=== PATIENT | male | born 1935 | race Caucasian/White ===

== ENCOUNTER → 2020-07-09 18:45 | Outpatient (CLI) | payer MEDICARE, OTHER, SELFPAY ==
--- NOTE | 2020-07-09 | DI.MRI.S_ITS ---
PROCEDURE: MR KNEE LT WO CON INDICATIONS: STRAIN OF LEFT QUADRICEPS, MUSCLE FACIA AND TENDON TECHNIQUE: Noncontrast sagittal PD fast spin echo and T2 fast spin echo with fat saturation, sagittal 3-D FLASH with fat saturation; coronal T1 spin echo and PD fast spin echo with fat saturation, and axial PD fast spin echo with fat saturation through the knee. COMPARISON: [facility] [place], CR, XR KNEE 4+ VIEWS LEFT, 07/07/2020, 14:07. FINDINGS: Image quality: Excellent. Menisci: There is extensive degenerative tearing and maceration of the medial meniscus with mild extrusion beyond the femorotibial joint line. There is complex tearing of the anterior horn of the lateral meniscus with horizontal oblique and vertical longitudinal components. Cruciate ligaments: There is chronic complete tearing of the anterior cruciate ligament. The posterior cruciate ligament is intact. Medial structures: Mild thickening of the proximal medial collateral ligament may represent a chronic low-grade sprain. The semimembranosus tendon insertions and meniscocapsular junction appear intact. Visualized portions of the pes anserinus tendons appear normal. No abnormal bursal fluid. Lateral structures: The lateral collateral ligament, long and short heads of the biceps femoris tendon appear intact. The popliteus tendon demonstrates mild tendinosis. No signs of posterolateral corner injury. Iliotibial band appears normal. Anterior structures: The quadriceps and patellar tendons appear intact. Patellar alignment is normal. No femoral trochlear dysplasia or ventral trochlear prominence. No edema in the infrapatellar fat pad. Bones and cartilage: No bone marrow contusions or fractures. There is full-thickness cartilage loss throughout the weight-bearing portion of the medial femorotibial compartment with subchondral edema and marginal osteophytes and mild remodeling of the tibial articular surface. Full-thickness cartilage loss is also seen in the central portion of the lateral femorotibial compartment with subchondral edema and marginal osteophyte formation. There is mild partial-thickness cartilage thinning in the anterior compartment. Joint space: There is a large joint effusion with mild synovial hypertrophy. A large medial popliteal cyst is seen measuring up to 9.7 cm in superior inferior extent. Edema is seen within the distal vastus medialis muscle, compatible with a low-grade strain. A moderate prepatellar bursal effusion is present. There is mild generalized fatty infiltration of the musculature surrounding the knee. IMPRESSION: 1. Low-grade muscle strain within the distal vastus medialis muscle. The distal quadriceps tendon is intact. 2. 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 3. Extensive degenerative tearing and maceration of the medial meniscus with mild meniscal extrusion. 4. Complex tearing of the anterior horn of the lateral meniscus with horizontal oblique and vertical longitudinal components. 5. 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 6. Chronic low-grade sprain of the proximal medial collateral ligament. 7. Large joint effusion with mild synovial hypertrophy. Large medial popliteal cyst. Moderate prepatellar bursal effusion. Dictated by: Guevara Coronel M.D. on 07/10/2020 at 8:55 Approved by: Guevara Coronel M.D. on 07/10/2020 at 9:07
== END ==
PROVIDERS: Family Provider Orthopaedic Surgery; Referring Provider Orthopaedic Surgery; Visit Provider Orthopaedic Surgery
DX: S76.112A Strain of left quadriceps muscle, fascia and tendon, initial encounter (principal); S83.272A Complex tear of lateral meniscus, current injury, left knee, initial encounter; S83.242A Other tear of medial meniscus, current injury, left knee, initial encounter; S83.512A Sprain of anterior cruciate ligament of left knee, initial encounter; S83.412A Sprain of medial collateral ligament of left knee, initial encounter; M17.12 Unilateral primary osteoarthritis, left knee; M94.262 Chondromalacia, left knee; M71.22 Synovial cyst of popliteal space [Baker], left knee; M25.462 Effusion, left knee; X58.XXXA Exposure to other specified factors, initial encounter
CPT/HCPCS: 73721